=== PATIENT | male | born 1945 | race Caucasian/White ===

== ENCOUNTER 2018-05-14 08:53 | Day surgery (SDC) | payer OTHER ==
[2018-05-14] MEDS ORDERED: Ringers Lactate 1,000 ML IV ONE (09:39)
[2018-05-14] MEDS ORDERED: PROPOFOL 200 MG/20 ML VIAL IV ONE ×2 (09:53→10:48)
[2018-05-14] MEDS ORDERED: LIDOCAINE 2% MPF 5 ML VIAL ONE ×2 (09:54→10:04)
[2018-05-14] MEDS ORDERED: MIDAZOLAM HCL 2 MG/2 ML INJ ONE (09:54)
[2018-05-14] MEDS ORDERED: DEPO-MEDROL 40 MG/ML IM ONE (10:04)
[2018-05-14] MEDS ORDERED: LIDOCAINE 1% MPF 5 ML VIAL ONE ×2 (10:04→10:39)
[2018-05-14] MEDS ORDERED: NS 0.9% VIAL 0 ML ONE (10:05)
[2018-05-14] MEDS ORDERED: BUPIVACAINE 0.25% PF 10 ML VIAL ONE (10:05)
--- NOTE | 2018-05-14 12:47 | P.OP ---
Preoperative diagnosis: Lumbar spondylosis Postoperative diagnosis: Lumbar Spondylosis Primary procedure: Bilateral L3/4, L4/5, L5/S1 Radiofrequency Ablation Anesthesia: Monitored Anesthesia Care Estimated blood loss: none Specimen: none
--- NOTE | 2018-05-14 13:33 | RAD REPORT ---
EXAM DESCRIPTION: RAD - Fluoro Guide Spinal Inj - 05/14/2018 1:23 pm FINDINGS: Portable C-arm views were obtained during fluoroscopic assisted placement of pain injectio n or radioablation pain management procedure. A total of 5 images were submitted. No suspicious or un expected findings. Fluoro time was 1.5 minutes with cumulative dose of 18.8 mGy.
== END 2018-05-14 12:20 | disposition home or self-care (01) ==
LOC: OR 08:53
PROVIDERS: ATTEND Pain Medicine Interventional Pain Medicine
PROC: BR16ZZZ Fluoroscopy of Lumbar Facet Joint(s) (ICD-10-PCS; 2018-05-14)
PROC: 3E0T3TZ Introduction of Destructive Agent into Peripheral Nerves and Plexi, Percutaneous Approach (ICD-10-PCS; principal; 2018-05-14 10:00)
DX: M47.817 Spondylosis without myelopathy or radiculopathy, lumbosacral region (principal); G89.4 Chronic pain syndrome; M54.16 Radiculopathy, lumbar region; Z88.6 Allergy status to analgesic agent
CPT/HCPCS: 64635; 64636 ×2; 77003; J1030; J2250

== ENCOUNTER 2018-05-23 05:59 | Day surgery (SDC) | payer OTHER ==
[2018-05-15 11:52] LABS: Protime INR 0.99
--- OUTSIDE RECORDS SUMMARY | 2018-05-23 06:01 | XMS REPORT ---
:1945 Author Organization eClinicalWorks Care Team Providers Name Role Phone Ever Estrella Provider Role Unavailable Allergies, Adverse Reactions, Alerts Substance Reaction Event Type Fentanyl Info Not Available Drug Allergy Demerol Info Not Available Drug Allergy Problems Problem Type Condition Code Onset Dates Condition Status Assessment Nontraumatic tear of left rotator M75.102 Active cuff Assessment Acute pain of left shoulder M25.512 Active Assessment Bicipital tendinitis of left M75.22 Active shoulder Medications Medication Code Code Instructions Start End Status Dosage System Date Date Metoprolol [facility] 46982808111 25 MG Oral Active TK 1 T PO Succinate ER QD Tylenol 8 Hour ND 81330483848 650 MG Orally Active 2 tablets every 8 hrs as needed Atorvastatin ND 32288479816 10 MG Oral Active TK 1 T PO D Calcium Aspirin 81 ND 24199437906 81 MG Orally Active 1 tablet Once a day Naproxen ND 61627288261 500 MG Oral Active TK 1 T PO BID PRN FOR 30 DAYS Aciphex ND 09678469576 20 MG Orally Active 1 tablet Once a day Vitamin C ND 32792450680 500 MG Orally Active as directed Ibuprofen ND 30287912467 800 MG Orally Active 1 tablet Three times a with food day or milk as needed Lesly-D 24 NDC 0 Active not defined Hour Travatan Z ND 43575186774 0.004 % Active INT 1 GTT Ophthalmic IN BOTH EYES QHS Toprol XL ND 80499975930 25 MG Orally Active 1 tablet Once a day Hydrocodone-Acet ND 84013948972 10-325 MG Oral Active (Schedule aminophen II Drug) TK 1 T PO Q 6 H PRN Timolol Maleate ND 97701597392 0.5 % Active INT 1 GTT Ophthalmic INTO OU IN THE MORNING Results No Known Results Summary Purpose eClinicalWorks Submission
[2018-05-23] MEDS ORDERED: CEFAZOLIN/SWI 1gm 1 GM/10 ML SYR ONE (06:23)
[2018-05-23] MEDS ORDERED: Ringers Lactate 1,000 ML IV ONE ×2 (06:23→09:16)
[2018-05-23] MEDS ORDERED: FENTANYL CITR 100 MCG/2 ML ONE (06:48)
[2018-05-23] MEDS ORDERED: DEXAMETHASONE 4 MG/ML VIAL ONE (06:48)
[2018-05-23] MEDS ORDERED: MIDAZOLAM HCL 2 MG/2 ML INJ ONE (06:48)
[2018-05-23] MEDS ORDERED: ROPLVACAINE HCL 40 ML ONE (06:49)
[2018-05-23] MEDS ORDERED: EPINEPHRINE/PF 1 MG/ML AMP ONE (07:01)
[2018-05-23] MEDS ORDERED: ROCURONIUM 50 MG/5 ML VIAL IV ONE (07:20)
[2018-05-23] MEDS ORDERED: LIDOCAINE 2% MPF 5 ML VIAL ONE (07:20)
[2018-05-23] MEDS ORDERED: PROPOFOL 200 MG/20 ML VIAL IV ONE ×2 (07:20→08:57)
[2018-05-23] MEDS ORDERED: NEOSTIGMINE 1 MG/ML -5 ML SYRINGE ONE (09:01)
[2018-05-23] MEDS ORDERED: GLYCOPYRROLATE 0.2 MG/ML SYR ONE (09:01)
[2018-05-23] MEDS ORDERED: DEXAMETHASONE 10 MG/ML VIAL ONE (09:02)
[2018-05-23] MEDS ORDERED: ONDANSETRON HCL 40 MG/20 ML VIAL ONE (09:02)
[2018-05-23] MEDS ORDERED: EPHEDRINE SULF 50 MG/10 ML SYR ONE (09:03)
--- NOTE | 2018-05-23 09:53 | P.BOP ---
Preoperative diagnosis: left shoulder rotator cuff tear, bicep tenosynovitis Postoperative diagnosis: left shoulder arthroscopic rotator cuff debridement Primary procedure: left SLAP tear debridement Secondary procedure: left shoulder open subpectoral biceps tenodesis Debeaker: NONE,NONE Estimated blood loss: 10 cc Specimen: none Findings: see dictation Anesthesia: General Complications: None Implants: 7x19 mm biotenodesis screw Fluids & blood products: per anesthesia Transferred to: Recovery Room Condition: Good
--- NOTE | 2018-05-23 10:18 | RAD REPORT ---
EXAM DESCRIPTION: RAD - Shoulder 1 View - 05/23/2018 10:13 am CLINICAL HISTORY: S/P (L) RC DEBRIDEMENT BICEPS TENDONITIS COMPARISON: No comparisons FINDINGS: A single AP projection of the left shoulder was performed. Degenerative changes are presen t at the AC joint and glenohumeral joint with subacromial outlet narrowing. Moderate soft tissue swel ling is noted.
[2018-05-23] MEDS ORDERED: HYDROCODONE/APAP 7.5/325 MG TAB ONE (11:02)
--- NOTE | 2018-05-28 10:09 | OP ---
Date of Procedure: 05/23/2018 Surgeon: Ever Estrella MD Preoperative Diagnoses: 1. Left shoulder rotator cuff tear. 2. Left shoulder bicipital tenosynovitis. Postoperative Diagnoses: 1. Left shoulder rotator cuff tear. 2. Left shoulder bicipital tenosynovitis. 3. Left shoulder superior labrum anterior and posterior tear. Procedure Performed: Left shoulder arthroscopic rotator cuff debridement, left shoulder arthroscopic SLAP tear debridement, left shoulder open subpectoral biceps tenodesis. Anesthesia: General endotracheal. Fluids: Per Anesthesia record. Estimated Blood Loss: 10 cc. Complications: None. Implant: A 7 x 19 mm Arthrex Bio-Tenodesis screw. Indication For Procedure: Refugio is a 73-year-old male presented to my clinic with left shoulder pain and signs and symptoms and MRI findings consistent with left shoulder rotator cuff tear and bicipital tenosynovitis. I discussed with the patient at length the diagnosis as well as risks and benefits associated with operative and nonoperative treatment. I discussed with the patient that given the retracted nature of the tear that it was possible that it may be not amenable to repair and he expressed understanding and elected to proceed with the procedure. Description Of Procedure: After informed consent was obtained, the patient was identified in the preoperative holding area. The left upper extremity was marked. The patient was taken back to the operating room, transferred to the operating table in a supine fashion, and placed under general endotracheal anesthesia. He was then placed in a beach chair position with his extremities well padded. The left upper extremity was examined. The patient had full range of motion of his left shoulder and no instability noted. The left upper extremity was then prepped and draped in the usual sterile fashion and time-out was initiated. The correct patient and procedure were confirmed and identified. The patient did receive his preoperative prophylactic antibiotics. Attention was first taken to the right posterior portal. Posterior portal was created and arthroscope was introduced into the glenohumeral joint. Diagnostic arthroscopy was performed. An anterior portal was then created and a cannula was placed. The patient was noted to have significant fraying of his superior labrum as well as elevation of the superior labrum off the glenoid consistent with the SLAP tear. Superior labrum was then debrided using an arthroscopic shaver. There was also some fraying of the biceps tendon at its anchor and a biceps tenotomy was used using a meniscal biter. There was mild chondromalacia of both the humeral head and glenoid, but no loose chondral flaps were noted. At the subscapularis, there was a tear in the superior border of the insertion and it was debrided using an arthroscopic shaver. Posterior and inferior labrum were then stable to probe and was brought into the axillary pouch. The arthroscope was then brought in from the subacromial space and a lateral portal was created. Subacromial bursectomy was performed using an arthroscopic shaver. The patient was noted to have a tear of the anterior supraspinatus which was retracted approximately 1 cm medial to the glenoid branch. Soft tissue releases were then performed superior to the supraspinatus deep. It was an anterior release. A pituitary grasper was then introduced into the shoulder joint and it was brought into the subacromial space. The supraspinatus tendon could not be reduced. It was significantly retracted and atrophic. It was able to be mobilized to the glenoid branch. At that point, it was elected to proceed with debridement of the supraspinatus tear and even its edges were debrided using an arthroscopic shaver from the supraspinatus. There was no significant damage to the coracoacromial ligament or fraying and I did not proceed with subacromial decompression. Arthroscopic instruments were then removed and attention was taken to performing the biceps tenodesis. Approximately, a 4-cm incision was made just medial to the pectoralis insertion. Dissection was then taken to the fascial layer. Fascia was divided and the pectoralis tendon was then retracted superiorly. Biceps tendon was then identified and brought out from the incision. It was marked 3 cm distal to the musculotendinous junction and whip stitched using a FiberLoop. Remaining biceps tendon was then cut and discarded. A guide pin was then placed within the bicipital groove and a 7.5 mm reamer was then used to ream the tunnel unicortically. The biceps tendon was loaded over the Bio-Tenodesis screw and a 7 x 19 mm Bio-Tenodesis screw was then placed within the tunnel, there was good fit of the screw and good stability of the tendon. The sutures were tied over the screw and the remaining suture was cut. The wounds were then irrigated thoroughly with normal saline. Subcutaneous tissue was approximated using a 2-0 Vicryl, skin was approximated using 3-0 Monocryl. Sterile dressings were applied. The patient was placed in a shoulder immobilizer, awakened, and transferred back in stable condition. Postoperative Plan: The patient will follow up in my clinic next week for wound check. We will begin physical therapy 2 weeks postoperatively following biceps tenodesis protocol. PAPI Voice ID: [id number] Report ID: [id number] MTDD
== END 2018-05-23 12:00 | disposition home or self-care (01) ==
LOC: OR 05:59
PROVIDERS: ATTEND Orthopaedic Surgery Sports Medicine
PROC: 0LS20ZZ Reposition Left Shoulder Tendon, Open Approach (ICD-10-PCS; 2018-05-23)
PROC: 0RBK4ZZ Excision of Left Shoulder Joint, Percutaneous Endoscopic Approach (ICD-10-PCS; principal; 2018-05-23 07:30)
DX: M75.102 Unspecified rotator cuff tear or rupture of left shoulder, not specified as traumatic (principal); M75.22 Bicipital tendinitis, left shoulder; I48.0 Paroxysmal atrial fibrillation; E78.00 Pure hypercholesterolemia, unspecified; K21.9 Gastro-esophageal reflux disease without esophagitis; Z79.82 Long term (current) use of aspirin; Z88.6 Allergy status to analgesic agent; Z85.828 Personal history of other malignant neoplasm of skin
CPT/HCPCS: 23430; 29822; 36415; 73020; 85610; 85730; J0171; J0690; J1100; J2250; J2405; J2710; J2795; J3010

== ENCOUNTER 2020-01-22 12:33 | Observation (INO) | payer OTHER ==
--- OUTSIDE RECORDS SUMMARY | 2020-01-22 12:38 | XMS REPORT ---
:1945 Author Organization eClinicalWorks Care Team Providers Name Role Phone Ever Estrella Provider Role Unavailable Allergies, Adverse Reactions, Alerts Substance Reaction Event Type Fentanyl Info Not Available Drug Allergy Demerol Info Not Available Drug Allergy Problems Problem Type Condition Code Onset Dates Condition Statu s Assessment Nontraumatic tear of left rotator M75.102 Active cuff Assessment Acute pain of left shoulder M25.512 Active Assessment Bicipital tendinitis of left M75.22 Active shoulder Medications Medication Code Code Instructions Start End Status Dosage System Date Date Metoprolol [facility] 13128636118 25 MG Oral Active TK 1 T PO Succinate ER QD Tylenol 8 Hour ND 58500207069 650 MG Orally Active 2 tablets every 8 hrs as needed Atorvastatin ND 50367129923 10 MG Oral Active TK 1 T PO D Calcium Aspirin 81 ND 27234544334 81 MG Orally Active 1 ta blet Once a day Naproxen ND 09784669037 500 MG Oral Active TK 1 T PO BID PRN FOR 30 DAYS Aciphex ND 68157200409 20 MG Orally Active 1 table t Once a day Vitamin C ND 00612628645 500 MG Orally Active as d irected Ibuprofen ND 98427908136 800 MG Orally Active 1 ta blet Three times a with food day or milk as needed Lesly-D 24 NDC 0 Active not defined Hour Travatan Z ND 09034896688 0.004 % Active INT 1 GTT Ophthalmic IN BOTH EYES QHS Toprol XL ND 03215666242 25 MG Orally Active 1 tab let Once a day Hydrocodone-Acet ND 83669566343 10-325 MG Oral Acti ve (Schedule aminophen II Drug) TK 1 T PO Q 6 H PRN Timolol Maleate ND 39025366166 0.5 % Active INT 1 GTT Ophthalmic INTO OU IN THE MORNING Results No Known Results Summary Purpose eClinicalWorks Submission
--- OUTSIDE RECORDS SUMMARY | 2020-01-22 12:38 | XMS REPORT ---
:1945 Author Organization eClinicalWorks Care Team Providers Name Role Phone Ever Estrella Provider Role Unavailable Allergies, Adverse Reactions, Alerts Substance Reaction Event Type Fentanyl Info Not Available Drug Allergy Demerol Info Not Available Drug Allergy Problems Problem Type Condition Code Onset Dates Condition Statu s Assessment Acute pain of left shoulder M25.512 Active Assessment Biceps tendinitis of left upper M75.22 Active extremity Assessment Complete rotator cuff tear of left M75.122 Active shoulder Medications Medication Code Code Instructions Start End Status Dosage System Date Date Aciphex ND 55883619336 20 MG Orally Active 1 table t Once a day Ibuprofen ND 18667595951 800 MG Orally Active 1 ta blet Three times a with food day or milk as needed Timolol Maleate ND 66391919798 0.5 % Active INT 1 GTT Ophthalmic INTO OU IN THE MORNING Travatan Z ND 04779421183 0.004 % Active INT 1 GTT Ophthalmic IN BOTH EYES QHS Toprol XL ND 54161166508 25 MG Orally Active 1 tab let Once a day Vitamin C ND 99107759794 500 MG Orally Active as d irected Lesly-D 24 NDC 0 Active not defined Hour Metoprolol ND 29910929141 25 MG Oral Active TK 1 T PO Succinate ER QD Atorvastatin ND 74988846314 10 MG Oral Active TK 1 T PO D Calcium Hydrocodone-Acet ND 45341870401 10-325 MG Oral Acti ve (Schedule aminophen II Drug) TK 1 T PO Q 6 H PRN Tylenol 8 Hour ND 78653703529 650 MG Orally Active 2 tablets every 8 hrs as needed Aspirin 81 ND 01108841864 81 MG Orally Active 1 ta blet Once a day Naproxen ND 12257341445 500 MG Oral Active TK 1 T PO BID PRN FOR 30 DAYS Results Name Result Date Reference Range Unit Abnormali ty Flag Physical Therapy Summary Purpose eClinicalWorks Submission
--- OUTSIDE RECORDS SUMMARY | 2020-01-22 12:38 | XMS REPORT ---
:1945 Author Organization eClinicalWorks Care Team Providers Name Role Phone Ever Estrella Provider Role Unavailable Allergies No Known Allergies Problems No Known Problems Medications No Known Medications Results No Known Results Summary Purpose eClinicalWorks Submission
--- OUTSIDE RECORDS SUMMARY | 2020-01-22 12:39 | XMS REPORT ---
:1945 Author Organization eClinicalWorks Care Team Providers Name Role Phone Ever Estrella Provider Role Unavailable Allergies, Adverse Reactions, Alerts Substance Reaction Event Type Fentanyl Info Not Available Drug Allergy Demerol Info Not Available Drug Allergy Problems Problem Type Condition Code Onset Dates Condition Statu s Assessment Complete rotator cuff tear of left M75.122 Active shoulder Assessment Biceps tendinitis of left upper M75.22 Active extremity Assessment Acute pain of left shoulder M25.512 Active Assessment Impingement syndrome of left M75.42 Active shoulder Medications Medication Code Code Instructions Start End Status Dosage System Date Date Aciphex [facility] 27703411461 20 MG Orally Active 1 table t Once a day Lesly-D 24 NDC 0 Active not defined Hour Naproxen ND 95818244471 500 MG Oral Active TK 1 T PO BID PRN FOR 30 DAYS Travatan Z ND 29063371951 0.004 % Active INT 1 GTT Ophthalmic IN BOTH EYES QHS Aspirin 81 ND 12650854440 81 MG Orally Active 1 ta blet Once a day Tylenol 8 Hour ND 02932547799 650 MG Orally Active 2 tablets every 8 hrs as needed Ibuprofen ND 70257127498 800 MG Orally Active 1 ta blet Three times a with food day or milk as needed Atorvastatin ND 30500566727 10 MG Oral Active TK 1 T PO D Calcium Timolol Maleate ND 82200835262 0.5 % Active INT 1 GTT Ophthalmic INTO OU IN THE MORNING Metoprolol ND 25854289918 25 MG Oral Active TK 1 T PO Succinate ER QD Vitamin C ND 04658321322 500 MG Orally Active as d irected Toprol XL ND 81811054326 25 MG Orally Active 1 tab let Once a day Hydrocodone-Acet ND 39170745523 10-325 MG Oral Acti ve (Schedule aminophen II Drug) TK 1 T PO Q 6 H PRN Results No Known Results Summary Purpose eClinicalWorks Submission
--- OUTSIDE RECORDS SUMMARY | 2020-01-22 12:39 | XMS REPORT ---
:1945 Author Organization eClinicalWorks Care Team Providers Name Role Phone Ever Estrella Provider Role Unavailable Allergies, Adverse Reactions, Alerts Substance Reaction Event Type Fentanyl Info Not Available Drug Allergy Demerol Info Not Available Drug Allergy Problems Problem Type Condition Code Onset Dates Condition Statu s Assessment Pain, joint, shoulder, left M25.512 Active Assessment Complete rotator cuff tear of left M75.122 Active shoulder Assessment Superior glenoid labrum lesion of S43.432A Active left shoulder, initial encounter Medications Medication Code Code Instructions Start End Status Dosage System Date Date Metoprolol [facility] 66585947226 25 MG Oral Active TK 1 T PO Succinate ER QD Hydrocodone-Acet ND 74019955894 10-325 MG Oral Acti ve (Schedule aminophen II Drug) TK 1 T PO Q 6 H PRN Lesly-D 24 NDC 0 Active not defined Hour Vitamin C ND 76708954894 500 MG Orally Active as d irected Timolol Maleate ND 22166339442 0.5 % Active INT 1 GTT Ophthalmic INTO OU IN THE MORNING Aciphex ND 82552264785 20 MG Orally Active 1 table t Once a day Toprol XL ND 71053792415 25 MG Orally Active 1 tab let Once a day Ibuprofen ND 91353688997 800 MG Orally Active 1 ta blet Three times a with food day or milk as needed Tylenol 8 Hour ND 72093547330 650 MG Orally Active 2 tablets every 8 hrs as needed Travatan Z ND 69404579374 0.004 % Active INT 1 GTT Ophthalmic IN BOTH EYES QHS Aspirin 81 ND 78367994476 81 MG Orally Active 1 ta blet Once a day Naproxen ND 22528830988 500 MG Oral Active TK 1 T PO BID PRN FOR 30 DAYS Atorvastatin ND 51873972881 10 MG Oral Active TK 1 T PO D Calcium Results No Known Results Summary Purpose eClinicalWorks Submission
[2020-01-22 13:48] LABS: Absolute Lymphocytes (CBC) 2.8 K/uL (0.7-4.9); Basophils % 0.3 % (0-1.3); Hematocrit 39.5 % (39.6-49.0); Lymphocytes % 18.5 % (15.3-44.8); MPV 9.4 fL (7.6-11.3); RBC Red Blood Cell Count 4.47 M/uL (4.33-5.43)
[2020-01-22 13:52] LABS: Protime INR 1.04
[2020-01-22] MEDS ORDERED: ACETAMINOPHEN 325 MG TABLET PO PRN (14:00)
[2020-01-22] MEDS ORDERED: NACHLORIDE 0.45% 1,000 ML IV SCH (14:00)
[2020-01-22] MEDS ORDERED: DIPHENHYDRAMINE 25 MG TAB/CAP PO PRN (14:00)
[2020-01-22] MEDS ORDERED: LOPERAMIDE HCL 2 MG CAPSULE PO PRN (14:00)
[2020-01-22] MEDS ORDERED: ONDANSETRON 4 MG (ODT) TAB PO PRN (14:00)
[2020-01-22] MEDS ORDERED: POLYETHYL GLY 3350 17 GM/DOSE PO PRN (14:00)
[2020-01-22] MEDS ORDERED: ONDANSETRON 4 MG/2 ML VIAL IV PRN (14:00)
[2020-01-22 14:29] LABS: Albumin 3.2 g/dL (3.4-5.0); Bilirubin Direct 0.2 mg/dL (0-0.2); Bilirubin Total 0.7 mg/dL (0.2-1.0); Phosphorus 2.8 mg/dL (2.5-4.9); Potassium 3.7 mmol/L (3.5-5.1); Protein, Total 7.2 g/dL (6.4-8.2); Thyroid Stimulating Hormone 2.95 uIU/mL (0.360-3.740)
[2020-01-22] MEDS: CIPROFLOXACIN 400mg IV 400 MG/200 ML BAG IV SCH ×2 (15:01→20:35)
[2020-01-22] MEDS: METRONIDAZOLE 500mg IVPB 500 MG/100 ML BAG IV SCH ×2 (15:01→18:44)
--- NOTE | 2020-01-22 16:14 | RAD REPORT ---
EXAM DESCRIPTION: RAD - Chest Pa And Lat (2 Views) - 01/22/2020 4:06 pm CLINICAL HISTORY: ABD PAIN COMPARISON: Two view chest August 2019 TECHNIQUE: Frontal and lateral views of the chest were obtained. FINDINGS: The lungs are clear of an acute infiltrate, failure or mass finding. Scarring or chronic a telectasis seen in each lung base. Heart size is normal and central vasculature is within normal li mits. No pleural effusion or pneumothorax seen. No acute bone finding. Scoliotic curvature to the s pine is again noted. No aortic abnormality. IMPRESSION: No acute cardiopulmonary process. Chronic interstitial findings are similar to August 2019.
[2020-01-22 16:19] VITALS: BMI 26.5
--- NOTE | 2020-01-22 16:40 | RAD REPORT ---
EXAM DESCRIPTION: CT - Abdomen Pelvis Wo Contrast - 01/22/2020 4:05 pm CLINICAL HISTORY: ABD PAIN COMPARISON: Abdomen Pelvis W Contrast dated 09/03/2019 TECHNIQUE: Axial [address] imaging of the abdomen and pelvis was performed without IV contrast. No IV contrast was given because of allergy, abnormal renal function, patient refusal or physician re quest. Oral contrast was given. All CT scans are performed using dose optimization technique as appropriate and may include automated exposure control or mA/KV adjustment according to patient size. FINDINGS: No suspicious findings in the lung bases. Scarring or chronic atelectasis present at the l eft base. The liver, spleen and pancreas show no suspicious findings on non-contrast imaging. Cholecystectomy c lips are present. No biliary tree dilatation. Mild to moderate hydronephrosis of the left ureter is present to near the urinary bladder. This is se condary to a 9 millimeter stone. This stone was previously positioned in a mid calyx of the left kidn ey on the August 2019 study. No other obstructing or nonobstructing calculi. No right-sided hydrone phrosis. No other obstructing or nonobstructing calculus is present. No significant adrenal finding. Isodense renal masses and pyelonephritis cannot be excluded in the absence of IV contrast. Urinary bl adder archibald are mildly thickened. No bladder stone. No cystitis is not excluded. A urethral stricture resulting in bladder wall thickening cannot be excluded. Prostate gland is not enlarged. There is qu estionable stranding in the adjacent fat. Correlation with BB within the prostatitis findings. No gastric dilatation or wall thickening. Minimal hiatal hernia is present. No small bowel dilatation . Appendix is normal. No acute colon finding seen. Rectosigmoid anastomosis shows no significant find ing. No free air, free fluid or inflammatory stranding. No hernia, mass or bulky lymphadenopathy. No suspicious bony findings. IMPRESSION: [id number]-ps-[id number] left-sided hydronephrosis secondary to a 9 millimeter stone approximate ly 3- 4 cm from the UVJ. Urinary bladder archibald are slightly thickened without asymmetric thickening or mass. No bladder calcul us. Cystitis is not excluded. Wall thickening that develops from a urethral stricture would be possib le. Prostate gland is not enlarged. There is questionable minimal stranding in the adjacent fat. Correlat ion can be made with any prostatitis exam findings. The bladder and prostate findings are only questionable as being acute. There are no acute GI finding s. Full assessment is limited is the absence of IV contrast.
[2020-01-22 17:59] LABS: Urine Appearance CLEAR; Urine Bilirubin NEGATIVE (NEG); Urine Blood NEGATIVE (NEG); Urine Color YELLOW; Urine Glucose NEGATIVE (NEG); Urine Protein TRACE (NEG); Urine Specific Gravity 1.025 (1.005-1.030); Urine Urobilinogen 0.2 mg/dL (0.2-1.0)
[2020-01-22 18:00] LABS: Urine Microscopic Reflex ORDER UMIC
[2020-01-22 18:11] LABS: Urine Bacteria <20 /HPF (NONE SEEN); Urine Culture Reflex Order NOT NEEDED; Urine Mucus 1+ /HPF (NONE SEEN); Urine RBC <5 /HPF (NONE SEEN)
[2020-01-22] MEDS: HYDROMORPHONE HCL 1 MG/ML INJ IV PRN ×3 (18:17→22:49)
[2020-01-22] MEDS: TAMSULOSIN 0.4 MG SR CAP PO SCH (18:44)
[2020-01-23] MEDS: HYDROMORPHONE HCL 1 MG/ML INJ IV PRN ×4 (00:53→08:22)
[2020-01-23] MEDS: METRONIDAZOLE 500mg IVPB 500 MG/100 ML BAG IV SCH ×2 (00:53→05:54)
[2020-01-23 05:22] LABS: Potassium 4.2 mmol/L (3.5-5.1)
[2020-01-23 06:04] LABS: Basophils % 0.2 % (0-1.3); Hematocrit 35.7 % (39.6-49.0); Lymphocytes % 24.3 % (15.3-44.8); RBC Red Blood Cell Count 4.04 M/uL (4.33-5.43)
[2020-01-23 07:34] LABS: MPV 8.8 fL (7.6-11.3)
[2020-01-23] MEDS: CIPROFLOXACIN 400mg IV 400 MG/200 ML BAG IV SCH (08:24)
[2020-01-23] MEDS: TAMSULOSIN 0.4 MG SR CAP PO SCH (08:24)
[2020-01-23 08:44] VITALS: O2SAT 94
[2020-01-23] MEDS ORDERED: ENOXAPARIN 40 MG/0.4 ML SQ SCH (09:00)
[2020-01-23 10:21] LABS: Platelet Estimate DECR
[2020-01-23 10:22] VITALS: BP 109/59; TEMP 97
--- NOTE | 2020-01-24 07:39 | EKG ---
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
== END 2020-01-23 10:03 | disposition home or self-care (01) ==
LOC: 2ND 12:33
PROVIDERS: ADMIT Internal Medicine; ATTEND Internal Medicine
DX: K57.30 Diverticulosis of large intestine without perforation or abscess without bleeding (principal); E78.5 Hyperlipidemia, unspecified; I10 Essential (primary) hypertension; L40.50 Arthropathic psoriasis, unspecified; M54.17 Radiculopathy, lumbosacral region; M54.12 Radiculopathy, cervical region; B02.29 Other postherpetic nervous system involvement; Z88.6 Allergy status to analgesic agent
CPT/HCPCS: 36415; 71046; 74176; 80048; 80076; 81003; 81015; 82306; 82607; 83735; 84100; 84145; 84443; 85025; 85049; 85610; 85730; 87086; 87088; 93005; G0378; G0379; J0744; J1170; J1650

== ENCOUNTER 2023-02-14 07:17 | Day surgery (SDC) | payer OTHER ==
--- NOTE | 2023-02-09 13:16 | RAD REPORT ---
EXAM DESCRIPTION: RAD - Chest Pa And Lat (2 Views) - 02/09/2023 1:10 pm CLINICAL HISTORY: pre op for surgery Chest pain. COMPARISON: Chest Pa And Lat (2 Views) dated 01/22/2020; Chest Pa And Lat (2 Views) dated 09/03/2019; Chest Pa And Lat (2 Views) dated 04/04/2018; CHEST PA AND LAT 2 VIEW dated 05/27/2013 TECHNIQUE: PA and lateral views of the chest were obtained. FINDINGS: The lungs are hyperexpanded compatible with COPD. The heart is upper limit of normal in si ze. No fracture or aggressive bony process. Mild thoracic dextroscoliosis. IMPRESSION: COPD without acute process identified. The USPSTF recommends annual screening for lung cancer with low-dose CT (LDCT) in adults aged 50 to 8 0 years who have a 20 pack-year smoking history and currently smoke or have quit within the past 15 y ears.
[2023-02-09 13:58] LABS: Absolute Lymphocytes (CBC) 4.9 K/uL (0.7-4.9); Hematocrit 39.5 % (39.6-49.0); Lymphocytes % 45.4 % (15.3-44.8); MCV 89.1 fL (80-100); MPV 8.4 fL (7.6-11.3); RBC Red Blood Cell Count 4.43 M/uL (4.33-5.43)
--- NOTE | 2023-02-11 15:25 | EKG ---
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
[~2023-02-14 07:17] MED LIST: Gentamicin Inj 200 MG in NA CHLORIDE 0.9% 100 ML IV SCH
[2023-02-14] MEDS ORDERED: Ringers Lactate 1,000 ML IV ONE (07:44)
[2023-02-14] MEDS ORDERED: AMPICILLIN SODIUM 2 GM/VIAL VIAL ONE (07:45)
[2023-02-14] MEDS ORDERED: propofoL 200 MG/20 ML VIAL IV ONE (12:53)
[2023-02-14] MEDS ORDERED: FENTANYL CITR 100 MCG/2 ML ONE (12:54)
[2023-02-14] MEDS ORDERED: LIDOCAINE 1% MPF 5 ML VIAL ONE (12:58)
[2023-02-14] MEDS ORDERED: ONDANSETRON 4 MG/2 ML VIAL ONE (12:58)
[2023-02-14] MEDS ORDERED: EPHEDRINE SULF 50 MG/ML VIAL ONE (13:36)
[2023-02-14 14:37] VITALS: O2SAT 100
[2023-02-14 14:50] VITALS: BP 112/59; TEMP 98.8
--- NOTE | 2023-02-15 00:10 | OP ---
Surgeon: ANNITA FRIAS Preoperative Diagnoses: 1.Persistent urinary tract infection. 2.Neurogenic bladder. 3.Bladder calculi, multiple. 4.Membranous urethral stricture disease. Postoperative Diagnoses: 1.Persistent urinary tract infection. 2.Neurogenic bladder. 3.Bladder calculi, multiple, with number of bladder calculi being 12. 4.Membranous urethral stricture disease. Principle Procedure: Cystoscopy and Ellik evacuation of bladder stones. Indication For Procedure: Mr. Dobbins is a 77-year-old gentleman who has been on [facility] longstanding becau se of neurogenic detrusor dysfunction using a 16-[place]izen [place] catheter to empty his bladder. He was found to have persistent infection despite multiple attempts at antimicrobial therapy, and ultimately under went cystoscopic evaluation revealing the presence of numerous calculi dependent within his bladder. Procedure In Detail: The patient was consented in the preoperative holding area before being transfe rred to the operative suite where general anesthesia was induced. He was given ampicillin 2 g and ge ntamicin 200 mg IV antimicrobial prophylaxis and pneumo boots were provided for DVT prophylaxis. He was placed in the lithotomy position, padded and secured to the table appropriately, and his genitali a were prepped with Hibiclens and draped in standard fashion. The case was begun using urethral soun ds to dilate the meatus and fossa navicularis to 30-[place]izen [place]. Then, I was able to insert the 26-[place]izen [place] resectoscope using a visual obturator via his urethra and beyond a point of urethral strictured narr owing at the membranous urethra dilating that along the way in order to navigate through the prostati c urethra and enter his bladder. The bladder was decompressed of fluid and urine, and the previously observed bladder calculi were again noted. Since they were all about 1 cm or slightly smaller in si ze, I postulated that they potentially could be removed directly via the resectoscope without need fo r laser fragmentation. As a result, I employed the Ellik evacuator and was successfully able to margie ve the majority of the stones. Upon revisualization, an additional couple of stones were remnant, bu t I was able with some manipulation to also remove those stones via the scope without need for laser fragmentation. As a result, in the end, the bladder was free of mucosal lesion, foreign body and sto ne, and the ureteral orifices were orthotopic in location, effluxing clear yellow urine. So I decomp ressed his bladder fluid and urine, and he was taken out of the lithotomy position. He was awakened from general anesthesia before being transferred to a stretcher and then transferred to the recovery room in good condition. Complications: None. Discharge Disposition: He should follow up in the [facility] intervally for cystoscopy in 1 year . We will send to [address] [place] [address] a request for 16[place] coude tipped catheters for him to use when cat heterizing for ease of passage and avoidance of worsening the strictured area in the bulbar urethra. After about 2 to 3 weeks, I would like for him to leave a urine sample for culture to ensure clearan ce of the enterococcus infection present, but if he is symptomatic of recurrent infection, I would li ke to see him in evaluation sooner. I would recommend he continue the Macrobid for the next 5 to 7 d ays and then discontinue taking any further Macrobid. CHANELLE/BRENDAN Voice ID: [id number] Report ID: [id number]
== END 2023-02-14 15:20 | disposition home or self-care (01) ==
LOC: OR 07:17
PROVIDERS: ATTEND Urology
PROC: 0TCB8ZZ Extirpation of Matter from Bladder, Via Natural or Artificial Opening Endoscopic (ICD-10-PCS; principal; 2023-02-14 09:00)
DX: N21.0 Calculus in bladder (principal); N39.0 Urinary tract infection, site not specified; N31.9 Neuromuscular dysfunction of bladder, unspecified; N35.913 Unspecified membranous urethral stricture, male; Z87.440 Personal history of urinary (tract) infections
CPT/HCPCS: 93005; 87088; 85025; 87086; 80048; 36415; 88300; 82360; 71046; 52310; J2704; J2001; J1580; J3010; J2405; J0290; J7120